=== PATIENT | male | born 1980 | race Caucasian/White ===

== ENCOUNTER 2016-07-16 22:34 | Emergency (ER) | payer MEDICAID, OTHER ==
--- NOTE | 2016-07-16 23:24 | ED ---
HPI Febrile Illness - HPI Summary HPI Summary: Patient presents for delayed evaluation of nasal congestion and cough for the last 2 days. Some sick contacts at his facility and told to come get checked out. Ford subjective fever yesterday. Cough is dry and non productive with frontal sinus congestion. Denies back or abd pain, chest pain. No allev factors attempted. Feels well otherwise. - History of Current Complaint Chief Complaint: EDFever Time Seen by Provider: 07/16/16 23:15 Onset/Duration: Started Days Ago Timing: Constant Initial Severity: Mild Current Severity: Mild Pain Intensity: 0 - Allergy/Home Medications Allergies/Adverse Reactions: Allergies Allergy/AdvReac Type Severity Reaction Status Date / Time No Known Allergies Allergy Verified 07/31/15 13:38 PMH/Surg Hx/FS Hx/Imm Hx Musculoskeletal History: Reports: Hx Arthritis, Other Musculoskeletal History - degenerative disk disorder Neurological History: Comment Only: Other Neuro Impairments/Disorders - dizziness and faiting spells when over heated Psychiatric History: Reports: Hx Anxiety, Hx Post Traumatic Stress Disorder, Hx of Violent Episodes Against Others, Other Psychiatric Issues/Disorders - Previous [facility] visit Denies: Hx Eating Disorder - Immunization History Date of Influenza Vaccine: No Infectious Disease History: No Infectious Disease History: Denies: Traveled Outside the [place] in Last 30 Days - Family History Known Family History: Positive: None Family History: R & n/C - Social History Alcohol Use: None Hx Substance Use: No Substance Use Type: Reports: None Hx Tobacco Use: Yes Smoking Status (MU): Heavy Every Day Tobacco Smoker Type: Cigarettes Review of Systems Positive: Fever. Negative: Chills Negative: Photophobia Positive: Sore Throat, Nasal Discharge. Negative: Ear Ache Cardiovascular: Negative Positive: Cough All Other Systems Reviewed And Are Negative: Yes Physical Exam Triage Information Reviewed: Yes Vital Signs On Initial Exam: Initial Vitals Temp Pulse Resp BP Pulse Ox 98.1 F 101 20 147/90 99 07/16/16 22:35 07/16/16 22:35 07/16/16 22:35 07/16/16 22:35 07/16/16 22:35 Vital Signs Reviewed: Yes Appearance: Positive: Well-Appearing, No Pain Distress, Well-Nourished Skin: Positive: Warm, Skin Color Reflects Adequate Perfusion, Dry Head/Face: Positive: Normal Head/Face Inspection Eyes: Positive: Normal, EOMI, MAGDALENA, Conjunctiva Clear ENT: Positive: Pharyngeal erythema, Nasal congestion, TMs normal. Negative: Nasal drainage, TM bulging, TM dull, TM red, Tonsillar swelling, Tonsillar exudate, Trismus, Muffled/hoarse voice Dental: Negative: Percussion Tenderness @ Neck: Positive: Supple, Nontender, No Lymphadenopathy Respiratory/Lung Sounds: Positive: Clear to Auscultation, Breath Sounds Present Cardiovascular: Positive: Normal, RRR, Pulses are Symmetrical in both Upper and Lower Extremities Abdomen Description: Positive: Nontender, No Organomegaly, Soft Musculoskeletal: Positive: Normal, Strength/ROM Intact Neurological: Positive: Normal, Sensory/Motor Intact, Alert, Oriented to Person Place, Time, CN Intact II-III, Reflexes Intact Diagnostics - Vital Signs Vital Signs Temp Pulse Resp BP Pulse Ox 07/16/16 22:35 98.1 F 101 20 147/90 99 - Laboratory Lab Statement: Any lab studies that have been ordered have been reviewed, and results considered in the medical decision making process. Course/Dx - Febrile Illness Differential Diagnoses: Other: - Primary concern for viral syndrome/URI vs influenza vs strep pharyngitis. Clear lung sounds and low concern for pneumonia. - Diagnoses Provider Diagnoses: Upper respiratory infection Discharge - Discharge Plan Condition: Stable Disposition: HOME Patient Education Materials: Upper Respiratory Infection (ED)
[2016-07-17 00:12] VITALS: BP 146/76
--- NOTE | 2016-07-17 07:45 | RAD ---
INDICATION: Cough. COMPARISON: There are no prior studies available for comparison. TECHNIQUE: Dual-energy PA and lateral views of the chest were obtained. FINDINGS: The heart is within normal limits in size. Mediastinal and hilar contours appear within normal limits. The lungs are clear. No pleural effusion is present. IMPRESSION: NO EVIDENCE FOR ACTIVE CARDIOPULMONARY DISEASE.
== END 2016-07-17 00:11 | disposition home or self-care (01) ==
LOC: ED 22:34
DX: J06.9 Acute upper respiratory infection, unspecified (principal); J02.9 Acute pharyngitis, unspecified; R05 Cough; F17.210 Nicotine dependence, cigarettes, uncomplicated
CPT/HCPCS: 71020; 87502; 87651; 99282

== ENCOUNTER 2018-01-02 20:15 | Emergency (ER) | payer OTHER ==
[2018-01-02 20:32] VITALS: BP 112/68
--- NOTE | 2018-01-02 20:59 | UC ---
Hand/Wrist HPI - HPI Summary HPI Summary: 1. 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 LEFT THUMB WAS PULLED BACK. HAS PAIN, SWELLING AND DECREASED ROM. 2. ALSO IS CONCERNED ABOUT HIS RIGHT GREAT TOE NAIL. THINKS IT IS INGROWN. - History Of Current Complaint Chief Complaint: UCUpperExtremity Stated Complaint: THUMB INJURY,TOE COMPLAINT Time Seen by Provider: 01/02/18 20:43 Hx Obtained From: Patient Onset/Duration: Sudden Onset, Lasting Hours, Still Present Severity Initially: Moderate Severity Currently: Moderate Pain Intensity: 9 Pain Scale Used: 0-10 Numeric Character Of Pain: Sharp Aggravating Factor(s): Movement Alleviating Factor(s): Rest, Ice Associated Signs And Symptoms: Positive: Swelling Related History: Dominant Hand Right - Allergies/Home Medications Allergies/Adverse Reactions: Allergies Allergy/AdvReac Type Severity Reaction Status Date / Time No Known Allergies Allergy Verified 01/02/18 20:32 Home Medications: Home Medications ARIPiprazole TAB* [Abilify 2 MG TAB*] 2 mg PO DAILY 01/02/18 [History Confirmed 01/02/18] Diclofenac Sodium EC TAB* [Voltaren EC TAB*] 25 mg PO BID PRN 01/02/18 [History Confirmed 01/02/18] Escitalopram Oxalate [Lexapro 10 mg] 10 mg PO DAILY 01/02/18 [History Confirmed 01/02/18] PMH/Surg Hx/FS Hx/Imm Hx Psychological History: Anxiety, Depression - Surgical History Surgical History: None - Family History Known Family History: Positive: Unknown - PT ADOPTED - Social History Alcohol Use: None Substance Use Type: None Smoking Status (MU): Heavy Every Day Tobacco Smoker Type: Cigarettes Amount Used/How Often: 1 PPD - Immunization History Most Recent Influenza Vaccination: has never had one Most Recent Tetanus Shot: less than 10 years ago Most Recent Pneumonia Vaccination: has never had it Review of Systems Constitutional: Negative Skin: Negative Respiratory: Negative Cardiovascular: Negative Gastrointestinal: Negative Motor: Decreased ROM All Other Systems Reviewed And Are Negative: Yes Physical Exam Triage Information Reviewed: Yes Appearance: Well-Appearing, No Pain Distress, Well-Nourished Vital Signs: Initial Vital Signs Temp 98.3 F 01/02/18 20:26 Pulse 83 01/02/18 20:26 Resp 16 01/02/18 20:26 BP 112/68 01/02/18 20:26 Pulse Ox 99 01/02/18 20:26 Vital Signs Reviewed: Yes Eyes: Positive: Conjunctiva Clear ENT: Positive: Hearing grossly normal Neck: Positive: Supple Respiratory: Positive: No respiratory distress, No accessory muscle use Cardiovascular: Positive: Pulses Normal Abdomen Description: Positive: Soft Musculoskeletal: Positive: ROM Limited @ - LEFT THUMB, Edema @ - LEFT THUMB, Other: - TTP LEFT 1ST MCP JOINT Neurological: Positive: Alert Psychological: Positive: Age Appropriate Behavior Skin: Positive: Other - RIGHT GREAT TOE NAIL INGROWN. Negative: rashes Hand/Wrist Course/Dx - Differential Dx/Diagnosis Provider Diagnoses: 1. LEFT THUMB SPRAIN. 2. RIGHT INGROWN TOE NAIL Discharge - Sign-Out/Discharge Documenting (check all that apply): Patient Departure - Discharge Plan Condition: Stable Disposition: HOME Patient Education Materials: Skier's Thumb (ED), Ingrown Nail (ED), Finger Sprain (ED) Forms: *Work Release Referrals: Eleanor Gagnon MD [Primary Care Provider] - If Needed Donovan Pickering MD [Medical Doctor] - If Needed Additional Instructions: XRAY UNREMARKABLE FOR FRACTURE OR DISLOCATION. LIKELY SPRAIN. YOUR SYMPTOMS SHOULD IMPROVE SIGNIFICANTLY OVER THE NEXT 1-2 WEEKS. IF YOU DO NOT IMPROVE EXPECTED FOLLOW-UP WITH YOUR PCP OR ORTHO. NSAIDS NEEDED FOR DISCOMFORT. REST , ICE, ELEVATE. WEAR THE SPLINT AT NIGHT AND DURING THE DAY ABLE. BE SURE NOT TO CUT YOUR TOE NAILS TOO SHORT. FOLLOW-UP WITH PODIATRY TO FURTHER DISCUSS TREATMENT OPTIONS FOR YOUR INGROWN NAIL. PODIATRY IN [facility] Dr. Rolo Horton [address] Dr[address] Shubham Easley. Please call his office at [phone] to make an appointment to be seen Dr. Edy Lemons. Please call his office at [phone] to make an appointment to be seen - Billing Disposition and Condition Condition: STABLE Disposition: Home
--- NOTE | 2018-01-02 21:09 | RAD ---
INDICATION: Left thumb injury COMPARISON: None TECHNIQUE: AP, lateral, and oblique views were obtained. FINDINGS: The bony structures, joint spaces, and soft tissues are normal for age. IMPRESSION: NO ACUTE FRACTURE
== END 2018-01-02 22:00 | disposition home or self-care (01) ==
LOC: UCEAST 20:15
DX: S63.602A Unspecified sprain of left thumb, initial encounter (principal); W19.XXXA Unspecified fall, initial encounter; Y93.89 Activity, other specified; Y92.9 Unspecified place or not applicable; L60.0 Ingrowing nail; F17.210 Nicotine dependence, cigarettes, uncomplicated; F41.8 Other specified anxiety disorders
CPT/HCPCS: 99213; G0463

== ENCOUNTER 2018-04-28 20:54 | Emergency (ER) | payer OTHER ==
[2018-04-28 21:06] VITALS: BP 112/78
--- NOTE | 2018-04-28 21:36 | UC ---
Hand/Wrist HPI - HPI Summary HPI Summary: 37 yo male with left little finger infection x days no fever now pain radiating up arm - History Of Current Complaint Chief Complaint: UCUpperExtremity Stated Complaint: FINGER PAIN Time Seen by Provider: 04/28/18 21:16 Hx Obtained From: Patient Onset/Duration: Gradual Onset, Lasting Days Severity Initially: Mild Severity Currently: Moderate Pain Intensity: 6 Pain Scale Used: 0-10 Numeric Character Of Pain: Sharp, Aching, Burning Aggravating Factor(s): Other - touch Alleviating Factor(s): Elevation Associated Signs And Symptoms: Positive: Swelling, Redness Related History: Dominant Hand Right - Allergies/Home Medications Allergies/Adverse Reactions: Allergies Allergy/AdvReac Type Severity Reaction Status Date / Time No Known Allergies Allergy Verified 04/28/18 21:06 PMH/Surg Hx/FS Hx/Imm Hx Previously Healthy: Yes Psychological History: Anxiety, Depression - Surgical History Surgical History: None - Family History Known Family History: Positive: Unknown - PT ADOPTED - Social History Alcohol Use: None Substance Use Type: Prescribed Smoking Status (MU): Heavy Every Day Tobacco Smoker Type: Cigarettes Amount Used/How Often: 1 PPD - Immunization History Most Recent Influenza Vaccination: has never had one Most Recent Tetanus Shot: unknown Most Recent Pneumonia Vaccination: has never had it Review of Systems All Other Systems Reviewed And Are Negative: Yes Constitutional: Positive: Negative Skin: Positive: Negative Eyes: Positive: Negative ENT: Positive: Negative Respiratory: Positive: Negative Cardiovascular: Positive: Negative Gastrointestinal: Positive: Negative Genitourinary: Positive: Negative Motor: Positive: Negative Neurovascular: Positive: Negative Musculoskeletal: Positive: Negative Neurological: Positive: Negative Psychological: Positive: Negative Physical Exam Triage Information Reviewed: Yes Appearance: Well-Appearing, No Pain Distress, Well-Nourished Vital Signs: Initial Vital Signs Temp 98.4 F 04/28/18 21:03 Pulse 91 04/28/18 21:03 Resp 18 04/28/18 21:03 BP 112/78 04/28/18 21:03 Pulse Ox 97 04/28/18 21:03 Vital Signs Reviewed: Yes Eyes: Positive: Conjunctiva Clear ENT: Positive: Hearing grossly normal. Negative: Nasal congestion, Nasal drainage, Trismus, Muffled voice, Dental tenderness Neck: Positive: Supple, Nontender, No Lymphadenopathy Respiratory: Positive: Lungs clear, Normal breath sounds, No respiratory distress, No accessory muscle use Cardiovascular: Positive: RRR, No Murmur Musculoskeletal: Positive: Other: - see image Neurological: Positive: Alert Psychological Exam: Normal Hand/Wrist Course/Dx - Differential Dx/Diagnosis Provider Diagnoses: paronychia left little finger Discharge - Sign-Out/Discharge Documenting (check all that apply): Patient Departure All imaging exams completed and their final reports reviewed: No Studies - Discharge Plan Condition: Stable Disposition: HOME Prescriptions: Cephalexin CAP* [Keflex CAP*] 500 mg PO QID #28 cap Patient Education Materials: Paronychia (ED) Referrals: Patsy Rojo MD [Primary Care Provider] - If Needed Additional Instructions: warm soapy soaks at least 4x day until improved recheck in about 48 hours if not improved elevate elevate elevate - Billing Disposition and Condition Condition: STABLE Disposition: Home Images Hands: 1 - red/swollen around nail margin
[2018-04-28] MEDS ORDERED: Cephalexin CAP* 500 MG PO ONE ×2 (21:38)
== END 2018-04-28 22:01 | disposition home or self-care (01) ==
LOC: UCEAST 20:54
DX: L03.012 Cellulitis of left finger (principal); F17.210 Nicotine dependence, cigarettes, uncomplicated
CPT/HCPCS: 10060; 87070; 87205; 87640; 87641; 99212; A9270-GY; G0463

== ENCOUNTER 2018-07-22 18:59 | Emergency (ER) | payer OTHER ==
[2018-07-22 19:38] VITALS: BP 152/117
--- NOTE | 2018-07-22 20:26 | UC ---
Upper Extremity HPI - HPI Summary HPI Summary: 37-year-old male comes in with a chief complaint of left elbow pain. Been having pain for about a month. The pain is on the lateral aspect of the elbow is worse with pronation and supination and also some extension movements of the elbow. Pain sometimes radiates up into the left shoulder. 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 Occasionally he'll get some numbness in the arm that goes away. No complaint of any chest pain. - History of Current Complaint Chief Complaint: UCUpperExtremity Stated Complaint: ELBOW AND ARM PAIN Time Seen by Provider: 07/22/18 20:14 Pain Intensity: 7 - Allergies/Home Medications Allergies/Adverse Reactions: Allergies Allergy/AdvReac Type Severity Reaction Status Date / Time No Known Allergies Allergy Verified 07/22/18 19:38 PMH/Surg Hx/FS Hx/Imm Hx Previously Healthy: Yes - Surgical History Surgical History: None - Family History Known Family History: Positive: None, Unknown - PT ADOPTED - Social History Alcohol Use: None Substance Use Type: None Smoking Status (MU): Heavy Every Day Tobacco Smoker Type: Cigarettes Amount Used/How Often: 1 PPD - Immunization History Most Recent Influenza Vaccination: has never had one Most Recent Tetanus Shot: unknown Most Recent Pneumonia Vaccination: has never had it Review of Systems All Other Systems Reviewed And Are Negative: Yes Constitutional: Positive: Negative Skin: Positive: Negative Eyes: Positive: Negative ENT: Positive: Negative Respiratory: Positive: Negative Cardiovascular: Positive: Negative Gastrointestinal: Positive: Negative Motor: Positive: Negative Neurovascular: Positive: Negative Musculoskeletal: Positive: Other: - see hpi Neurological: Positive: Negative Psychological: Positive: Negative Is Patient Immunocompromised?: No Physical Exam Triage Information Reviewed: Yes Appearance: Well-Appearing, No Pain Distress, Well-Nourished Vital Signs: Initial Vital Signs Temp 99.1 F 07/22/18 19:33 Pulse 90 07/22/18 19:33 Resp 18 07/22/18 19:33 BP 152/117 07/22/18 19:33 Pulse Ox 97 07/22/18 19:33 Vital Signs Reviewed: Yes Eye Exam: Normal Eyes: Positive: Conjunctiva Clear Neck exam: Normal Neck: Positive: Supple Respiratory: Positive: No respiratory distress Musculoskeletal: Positive: Other: - Left elbow is tender to palpation left elbow is tender to palpation just medial to the radial head. Elbow has full range of motion and full strength although some ranges of motion do increase the pain. No erythema no color. Fingers wrists and shoulders have full range of motion full-strength no sensation deficits is normal radial pulses normal capillary refill. Neurological Exam: Normal Neurological: Positive: Alert, Muscle Tone Normal Psychological Exam: Normal Psychological: Positive: Age Appropriate Behavior Skin Exam: Normal Upper Extremity Course/Dx - Course Course Of Treatment: I discussed the x-rays with the patient. I do not see any fractures radiologist reading is pending. By exam it appears that he has lateral epicondylitis. I doubt and gave him the patient information handout from up-to-date for epicondylitis. Recommended him getting a brace icing it and continue his Voltaren. Follow-up his primary care physician if not improving. - Differential Dx/Diagnosis Provider Diagnosis: Epicondylitis, lateral, left Discharge - Sign-Out/Discharge Documenting (check all that apply): Patient Departure All imaging exams completed and their final reports reviewed: No - Discharge Plan Condition: Stable Disposition: HOME Patient Education Materials: Tennis Elbow (ED) Referrals: Eleanor Gagnon MD [Primary Care Provider] - Additional Instructions: FOLLOW UP WITH YOUR DOCTOR IF NOT COMPLETELY IMPROVED. GET RECHECKED FOR ANY WORSENING OF YOUR CONDITION OR QUESTIONS OR CONCERNS. - Billing Disposition and Condition Condition: STABLE Disposition: Home
--- NOTE | 2018-07-23 14:15 | UC ---
- Progress Note Progress Note: OFFICIAL RADIOLOGY REPORT REVIEWED. NEGATIVE EXAM. NO CHANGE IN MGMT. Course/Dx - Diagnoses Provider Diagnoses: Epicondylitis, lateral, left Discharge - Sign-Out/Discharge Documenting (check all that apply): Post-Discharge Follow Up All imaging exams completed and their final reports reviewed: Yes - Discharge Plan Condition: Stable Disposition: HOME Patient Education Materials: Tennis Elbow (ED) Referrals: Eleanor Gagnon MD [Primary Care Provider] - Additional Instructions: FOLLOW UP WITH YOUR DOCTOR IF NOT COMPLETELY IMPROVED. GET RECHECKED FOR ANY WORSENING OF YOUR CONDITION OR QUESTIONS OR CONCERNS. - Billing Disposition and Condition Condition: STABLE Disposition: Home
== END 2018-07-22 21:15 | disposition home or self-care (01) ==
LOC: UCEAST 18:59
DX: M77.12 Lateral epicondylitis, left elbow (principal); F17.210 Nicotine dependence, cigarettes, uncomplicated
CPT/HCPCS: 99211; G0463

== ENCOUNTER 2019-01-04 10:23 | Day surgery (SDC) | payer OTHER ==
[~2019-01-04 10:23] MED LIST: Lactated Ringers 1000 ML Bag* 1,000 ML IV SCH
[2019-01-04] MEDS ORDERED: ceFAZolin 2 GM in NS PREMIX(*) 2 GM/100 ML BAG IVPB ONE (10:45)
[2019-01-04] MEDS ORDERED: Buffered Lidocaine 1% SYRIN* 1 ML/SYRINGE INTRADERM ONE (10:45)
[2019-01-04] MEDS ORDERED: ceFAZolin 1 GM ADVAN(*) 1 GM ADDV.VIAL IVPB ONE (10:45)
[2019-01-04] MEDS: Buffered Lidocaine 1% SYRIN* 1 ML/SYRINGE INTRADERM ONE ×2 (10:52→11:04)
[2019-01-04] MEDS ORDERED: Midazolam* 1 MG/ML 5 ML VIAL (5 MG) ONE (11:32)
[2019-01-04] MEDS ORDERED: fentaNYL* 50 MCG/ML 2 ML VIAL (100 MCG VIAL) ONE ×2 (11:32→13:26)
[2019-01-04] MEDS ORDERED: Lidocaine 1% w EPI 1:100,000* 30 ML VIAL ONE (11:58)
[2019-01-04] MEDS ORDERED: Mineral Oil Sterile, TOPICAL* 25 ML BTL ONE (12:00)
[2019-01-04] MEDS ORDERED: Artificial Tear OPHTH.OINT* 3.5 GM ONE (12:01)
[2019-01-04] MEDS ORDERED: Propofol* 10 MG/ML 20 ML BTL ONE (12:21)
[2019-01-04] MEDS ORDERED: BSS OPTH.SOL* BTL ONE (12:23)
[2019-01-04] MEDS ORDERED: Naloxone* 0.4 MG/ML 1 ML VIAL IV PRN (12:45)
[2019-01-04] MEDS ORDERED: Acetaminophen TAB* 325 MG ONE (14:28)
[2019-01-04 14:36] VITALS: BP 131/79
== END 2019-01-04 14:45 | disposition home or self-care (01) ==
LOC: OR 10:23
PROVIDERS: ATTEND Plastic Surgery
DX: C44.319 Basal cell carcinoma of skin of other parts of face (principal); K21.9 Gastro-esophageal reflux disease without esophagitis; F41.8 Other specified anxiety disorders; E66.9 Obesity, unspecified; F17.210 Nicotine dependence, cigarettes, uncomplicated
CPT/HCPCS: 88305; 88331; 88332; A9270-GY; J0690; J2250; J2704; J3010

== ENCOUNTER 2019-01-20 13:22 | Emergency (ER) | payer OTHER ==
--- NOTE | 2019-01-20 14:28 | ED ---
Syncope/Near Syncope - HPI Summary HPI Summary: 38 yr old male with the complaint of syncope times two today. He states that he had sutures removed from his right side of the face near his nose. He states the sutures were there due to removal of skin cancer. He states it was difficult and painful to have the sutures removed today. He says he got hot and sweaty and felt light headed on his way to his car after leaving the plastic surgeons office. He passed out twice in the car. The patient states he had some SOB prior to passing out. He has had some low back pain as well. The patient has felt nauseated since passing out. He denies chest pain. He has passed out in the past during surgical proceedures, dentist. - History Of Current Complaint Chief Complaint: UCGeneralIllness Time Seen by Provider: 01/20/19 13:52 - Allergies/Home Medications Allergies/Adverse Reactions: Allergies Allergy/AdvReac Type Severity Reaction Status Date / Time No Known Allergies Allergy Verified 01/20/19 13:32 PMH/Surg Hx/FS Hx/Imm Hx Endocrine/Hematology History: Denies: Hx Anticoagulant Therapy, Hx Diabetes, Hx Thyroid Disease Cardiovascular History: Denies: Hx Hypertension, Hx Myocardial Infarction Respiratory History: Denies: Hx Asthma, Hx Chronic Obstructive Pulmonary Disease (COPD) GI History: Reports: Hx Gastroesophageal Reflux Disease - CONTROL WITH MEDICATION, Hx Hiatal Hernia - POSSIBLE Denies: Hx Ulcer Musculoskeletal History: Reports: Hx Arthritis - SPINE, Other Musculoskeletal History - degenerative disk disorder Sensory History: Denies: Hx Contacts or Glasses, Hx Hearing Aid Opthamlomology History: Denies: Hx Contacts or Glasses Neurological History: Reports: Hx Nerve Disease Comment Only: Other Neuro Impairments/Disorders - dizziness and faiting spells when over heated Psychiatric History: Reports: Hx Anxiety - AROUNDS CROWDS, Hx Depression - MAJOR DEPRESSIVE DISORDER, Hx Post Traumatic Stress Disorder, Hx of Violent Episodes Against Others, Other Psychiatric Issues/Disorders - Previous [facility] visit Denies: Hx Eating Disorder - Cancer History Cancer Type, Location and Year: skin CA on face 2018 - Surgical History Surgery Procedure, Year, and Place: skin CA removed from face 01/2019 Hx Anesthesia Reactions: No - Immunization History Date of Influenza Vaccine: No Infectious Disease History: No Infectious Disease History: Denies: Hx Hepatitis, Hx Human Immunodeficiency Virus (HIV), Traveled Outside the [place] in Last 30 Days - Family History Known Family History: Positive: None, Unknown - PT ADOPTED - Social History Alcohol Use: None Hx Substance Use: No Substance Use Type: Reports: None Hx Tobacco Use: Yes Smoking Status (MU): Heavy Every Day Tobacco Smoker Type: Cigarettes Amount Used/How Often: 1 PPD Have You Smoked in the Last Year: Yes Review of Systems Constitutional: Negative Positive: Other - syncope All Other Systems Reviewed And Are Negative: Yes Physical Exam Triage Information Reviewed: Yes Vital Signs On Initial Exam: Initial Vitals Temp Pulse Resp BP Pulse Ox 0 F 78 18 111/73 97 01/20/19 13:25 01/20/19 13:25 01/20/19 13:25 01/20/19 13:25 01/20/19 13:25 Vital Signs Reviewed: Yes Appearance: Positive: Well-Appearing, No Pain Distress Skin: Positive: Warm, Skin Color Reflects Adequate Perfusion Head/Face: Positive: Normal Head/Face Inspection Eyes: Positive: EOMI, MAGDALENA ENT: Positive: Normal ENT inspection Neck: Positive: Nontender Respiratory/Lung Sounds: Positive: Clear to Auscultation, Breath Sounds Present Cardiovascular: Positive: RRR. Negative: Murmur Abdomen Description: Negative: Distended Musculoskeletal: Positive: Strength/ROM Intact Neurological: Positive: Sensory/Motor Intact, Alert, Oriented to Person Place, Time, CN Intact II-III, Normal Gait, Speech Normal Psychiatric: Positive: Normal Diagnostics - Vital Signs Vital Signs Temp Pulse Resp BP Pulse Ox 01/20/19 13:56 74 18 111/77 95 01/20/19 13:25 0 F 78 18 111/73 97 - Laboratory Lab Statement: Any lab studies that have been ordered have been reviewed, and results considered in the medical decision making process. - EKG 01/20/19 Cardiac Rate: NL EKG Rhythm: Sinus Rhythm ST Segment: Non-Specific - j point elevation II,III, V2,3 Ectopy: None Course/Dx Course Of Treatment: 38 yr old with syncope, likely vasovagal. He refuses transfer to ER for labs and further work up and observation. He is signing out AMA. - Diagnoses Provider Diagnoses: Syncope Discharge - Sign-Out/Discharge Documenting (check all that apply): Patient Departure All imaging exams completed and their final reports reviewed: No Studies - Discharge Plan Condition: Good Disposition: AGAINST MEDICAL ADVICE Patient Education Materials: Syncope (ED) Referrals: Eleanor Gagnon MD [Primary Care Provider] - 1 Day - Billing Disposition and Condition Condition: GOOD Disposition: Against Medical Advice
[2019-01-20 14:50] VITALS: BP 127/80
== END 2019-01-20 14:46 | disposition left against medical advice (07) ==
LOC: UCEAST 13:22
DX: R55 Syncope and collapse (principal); F17.210 Nicotine dependence, cigarettes, uncomplicated
CPT/HCPCS: 93005; 99212; G0463

== ENCOUNTER 2019-04-02 16:03 | Emergency (ER) | payer OTHER ==
[2019-04-02 16:14] VITALS: BP 150/88
[2019-04-02] MEDS ORDERED: Ondansetron INJ* 2 MG/ML VIAL IV ONE (16:26)
[2019-04-02] MEDS ORDERED: NS 0.9% 1000 ML** 1,000 ML BOLUS ONE (16:26)
--- NOTE | 2019-04-02 16:32 | UC ---
Abdominal Pain Male HPI - HPI Summary HPI Summary: The patient is a 38-year-old male that developed a fairly acute onset of periumbilical abdominal pain late last night. He has had nausea and vomiting x 3 and 6-8 episodes of diarrhea. He states he has passed some bright red blood on a few occasions. He has had some episodes of tenesmus. He has felt feverish and had chills. He has had no trouble urinating. He denies any back pain. He has not had any surgeries on his abdomen. - History of Current Complaint Chief Complaint: UCAbdominalPain Stated Complaint: STOMACHE PAIN Time Seen by Provider: 04/02/19 16:15 Hx Obtained From: Patient Onset/Duration: Sudden Onset, Lasting Hours Timing: Constant Severity Initially: Moderate Severity Currently: Severe Pain Intensity: 8 - pain waxes and wanes Pain Scale Used: 0-10 Numeric Location: Other - periumbilica is Radiates: No Character: Cramping Aggravating Factor(s): Movement Associated Signs And Symptoms: Positive: Fever, Blood in Stool, Decreased Appetite, Nausea, Vomiting, Diarrhea. Negative: Cough, Chest Pain, Dizzy, Back Pain, Constipation - Alert, Urinary Symptoms - Allergies/Home Medications Allergies/Adverse Reactions: Allergies Allergy/AdvReac Type Severity Reaction Status Date / Time No Known Allergies Allergy Verified 01/20/19 13:32 PMH/Surg Hx/FS Hx/Imm Hx Previously Healthy: Yes Other History Of: Negative For: Anticoagulant Therapy - Surgical History Surgical History: Yes Surgery Procedure, Year, and Place: skin CA removed from face 01/2019 - Family History Known Family History: Positive: Unknown - PT ADOPTED - Social History Alcohol Use: None Substance Use Type: None Smoking Status (MU): Heavy Every Day Tobacco Smoker Type: Cigarettes Amount Used/How Often: 1 PPD Have You Smoked in the Last Year: Yes - Immunization History Most Recent Influenza Vaccination: has never had one Most Recent Tetanus Shot: unknown Most Recent Pneumonia Vaccination: has never had it Review of Systems All Other Systems Reviewed And Are Negative: Yes Constitutional: Positive: Fever - noel, Chills Skin: Positive: Negative Eyes: Positive: Negative ENT: Positive: Negative Respiratory: Positive: Negative Cardiovascular: Positive: Negative Gastrointestinal: Positive: Abdominal Pain, Vomiting, Diarrhea, Nausea Genitourinary: Positive: Negative Motor: Positive: Negative Neurovascular: Positive: Negative Musculoskeletal: Positive: Negative Neurological: Positive: Negative Psychological: Positive: Negative Physical Exam Triage Information Reviewed: Yes Appearance: Well-Appearing, Well-Nourished, Pain Distress Vital Signs: Initial Vital Signs Temp 98.2 F 04/02/19 16:10 Pulse 81 04/02/19 16:10 Resp 18 04/02/19 16:10 BP 150/88 04/02/19 16:10 Pulse Ox 95 04/02/19 16:10 Eyes: Positive: Conjunctiva Clear ENT: Positive: Hearing grossly normal, Uvula midline. Negative: Nasal congestion, Nasal drainage, Tonsillar swelling, Tonsillar exudate, Hoarse voice Dental Exam: Other - edentulous Neck: Positive: Supple, Nontender, No Lymphadenopathy Respiratory: Positive: Lungs clear, Normal breath sounds, No respiratory distress, No accessory muscle use Cardiovascular: Positive: RRR, No Murmur Abdomen Description: Positive: Other: - Tender periumbilically and LLQ. Negative: Nontender, CVA Tenderness (R), CVA Tenderness (L) Musculoskeletal: Positive: No Edema Neurological: Positive: Alert Psychological Exam: Normal Skin Exam: Normal Abd Pain Male Course/Dx - Course Course Of Treatment: I spoke to [facility] [place] [facility] attending To ER via EMS - Differential Dx/Clinical Impression Provider Diagnosis: Abdominal pain, acute, periumbilical Discharge ED - Sign-Out/Discharge Documenting (check all that apply): Patient Departure All imaging exams completed and their final reports reviewed: No Studies - Discharge Plan Condition: Stable Disposition: TRANS HIGHER LVL OF CARE FAC Referrals: Eleanor Gagnon MD [Primary Care Provider] - - Billing Disposition and Condition Condition: STABLE Disposition: Trans Higher Lvl of Care Fac
== END 2019-04-02 17:01 | disposition short-term general hospital (02) ==
LOC: UCEAST 16:03
DX: R10.33 Periumbilical pain (principal); F17.210 Nicotine dependence, cigarettes, uncomplicated; R19.7 Diarrhea, unspecified; R11.2 Nausea with vomiting, unspecified
CPT/HCPCS: 96360; 96374; 99203; G0463; J2405

== ENCOUNTER 2019-04-02 17:17 | Emergency (ER) | payer OTHER ==
[2019-04-02 18:29] LABS: ABS Eosinophils 0.4 10^3/ul (0-0.6); ABS Lymphocytes 2.2 10^3/ul (1.0-4.8); ABS Monocytes 0.7 10^3/ul (0-0.8); ABS Neutrophils 7.1 10^3/ul (1.5-7.7); Eosinophil % 3.7 %; Hematocrit 48 % (42-52); Hemoglobin 16.6 g/dL (14.0-18.0); Lymphocyte % 21.2 %; Mean Corpuscular HGB Conc 35 g/dL (31-36); Mean Corpuscular Hemoglobin 32 pg (27-31); Mean Corpuscular Volume 92 fL (80-94); Mean Platelet Volume 8.8 fL (7.4-10.4); Nucleated Red Blood Cells % 0.2; Platelet Count 162 10^3/uL (150-450); Red Blood Count 5.22 10^6 /uL (4.18-5.48); Red Cell Distribution Width 14 % (10-15); White Blood Count 10.5 10^3/uL (3.5-10.8)
[2019-04-02 18:40] LABS: Albumin 4.5 g/dL (3.2-5.2); Albumin/Globulin Ratio 1.7 (1-3); BUN/Creatinine Ratio 9.3 (8-20); C Reactive Protein 1.62 mg/L (<8.01); Calcium 9.2 mg/dL (8.6-10.3); EGFR African American 91.6 (>60); EGFR Non-African American 75.7 (>60); Globulin 2.6 g/dL (2-4); Potassium 4.3 mmol/L (3.5-5.0); Total Bilirubin 0.5 mg/dL (0.2-1.0); Total Protein 7.1 g/dL (6.4-8.9)
--- NOTE | 2019-04-02 18:49 | ED ---
Abdominal Pain/Male - HPI Summary HPI Summary: Patient complains of central abdominal pain, nausea, watery stools starting this morning. Abdominal pain described as constant, worse with movement. Patient went to urgent care for further evaluation and was sent to the ED to rule out SBO. Zofran given in urgent care. Patient denies fever, cough, sore throat, CP, SOB, vomiting, change in urine, penile or testicular symptoms. Medical history is none. Abdominal surgical history is none. Denies foreign travel, recent antibiotics, contact exposure. - History of Current Complaint Chief Complaint: EDAbdPain Stated Complaint: "ABDOMINAL PAIN COMING FROM [facility] PER EMS" Time Seen by Provider: 04/02/19 17:38 Hx Obtained From: Patient Onset/Duration: Sudden Onset, Lasting Hours Timing: Constant Severity Initially: Severe Severity Currently: Severe Pain Intensity: 8 Pain Scale Used: 0-10 Numeric Location: Umbilical Radiates: No Character: Sharp, Dull Aggravating Factor(s): Nothing Alleviating Factor(s): Nothing Associated Signs And Symptoms: Positive: Nausea, Diarrhea - Allergies/Home Medications Allergies/Adverse Reactions: Allergies Allergy/AdvReac Type Severity Reaction Status Date / Time No Known Allergies Allergy Verified 04/02/19 17:32 PMH/Surg Hx/FS Hx/Imm Hx Endocrine/Hematology History: Denies: Hx Anticoagulant Therapy, Hx Diabetes, Hx Thyroid Disease Cardiovascular History: Denies: Hx Hypertension, Hx Myocardial Infarction Respiratory History: Denies: Hx Asthma, Hx Chronic Obstructive Pulmonary Disease (COPD) GI History: Reports: Hx Gastroesophageal Reflux Disease - CONTROL WITH MEDICATION, Hx Hiatal Hernia - POSSIBLE Denies: Hx Ulcer Musculoskeletal History: Reports: Hx Arthritis - SPINE, Other Musculoskeletal History - degenerative disk disorder Sensory History: Denies: Hx Contacts or Glasses, Hx Hearing Aid Opthamlomology History: Denies: Hx Contacts or Glasses Neurological History: Reports: Hx Nerve Disease Comment Only: Other Neuro Impairments/Disorders - dizziness and faiting spells when over heated Psychiatric History: Reports: Hx Anxiety - AROUNDS CROWDS, Hx Depression - MAJOR DEPRESSIVE DISORDER, Hx Post Traumatic Stress Disorder, Hx of Violent Episodes Against Others, Other Psychiatric Issues/Disorders - Previous [facility] visit Denies: Hx Eating Disorder - Cancer History Cancer Type, Location and Year: skin CA on face 2018 - Surgical History Surgery Procedure, Year, and Place: skin CA removed from face 01/2019 Hx Anesthesia Reactions: No - Immunization History Date of Influenza Vaccine: No Infectious Disease History: No Infectious Disease History: Denies: Hx Hepatitis, Hx Human Immunodeficiency Virus (HIV), Traveled Outside the [place] in Last 30 Days - Family History Known Family History: Positive: Unknown - PT ADOPTED - Social History Alcohol Use: None Hx Substance Use: No Substance Use Type: Reports: None Hx Tobacco Use: Yes Smoking Status (MU): Heavy Every Day Tobacco Smoker Type: Cigarettes Amount Used/How Often: 1 PPD Have You Smoked in the Last Year: Yes Review of Systems Constitutional: Negative Eyes: Negative ENT: Negative Cardiovascular: Negative Respiratory: Negative Positive: Abdominal Pain, Diarrhea, Nausea Genitourinary: Negative Musculoskeletal: Negative Skin: Negative Neurological: Negative Psychological: Normal All Other Systems Reviewed And Are Negative: Yes Physical Exam Triage Information Reviewed: Yes Vital Signs On Initial Exam: Initial Vitals Temp Pulse Resp BP Pulse Ox 97.9 F 74 16 154/91 95 04/02/19 17:26 04/02/19 17:26 04/02/19 17:26 04/02/19 17:26 04/02/19 17:26 Vital Signs Reviewed: Yes Appearance: Positive: Well-Appearing Skin: Positive: Warm Head/Face: Positive: Normal Head/Face Inspection Eyes: Positive: Normal Neck: Positive: Supple Respiratory/Lung Sounds: Positive: Clear to Auscultation Cardiovascular: Positive: Normal Abdomen Description: Positive: Other: - Tender to palpation centrally and left lower quadrant. Musculoskeletal: Positive: Normal Neurological: Positive: Normal Psychiatric: Positive: Normal AVPU Assessment: Alert - Bear Coma Scale Best Eye Response: 4 - Spontaneous Best Motor Response: 6 - Obeys Commands Best Verbal Response: 5 - Oriented Coma Scale Total: 15 Procedures - Sedation Patient Received Moderate/Deep Sedation with Procedure: No Diagnostics - Vital Signs Vital Signs Temp Pulse Resp BP Pulse Ox 04/02/19 17:28 73 154/91 95 04/02/19 17:27 71 95 04/02/19 17:26 97.9 F 74 16 154/91 95 - Laboratory Lab Results: Lab Results 04/02/19 04/02/19 04/02/19 Range/Units 18:09 18:09 18:09 WBC 10.5 (3.5-10.8) 10^3/uL RBC 5.22 (4.18-5.48) 10^6 /uL Hgb 16.6 (14.0-18.0) g/dL Hct 48 (42-52) % MCV 92 (80-94) fL MCH 32 H (27-31) pg MCHC 35 (31-36) g/dL RDW 14 (10-15) % Plt Count 162 (150-450) 10^3/uL MPV 8.8 (7.4-10.4) fL Neut % (Auto) 67.6 % Lymph % (Auto) 21.2 % [place] % (Auto) 7.0 % Eos % (Auto) 3.7 % Baso % (Auto) 0.5 % Absolute Neuts (auto) 7.1 (1.5-7.7) 10^3/ul Absolute Lymphs (auto) 2.2 (1.0-4.8) 10^3/ul Absolute Monos (auto) 0.7 (0-0.8) 10^3/ul Absolute Eos (auto) 0.4 (0-0.6) 10^3/ul Absolute Basos (auto) 0.0 (0-0.2) 10^3/ul Absolute Nucleated RBC 0.0 10^3/ul Nucleated RBC % 0.2 Sodium 137 (135-145) mmol/L Potassium 4.3 (3.5-5.0) mmol/L Chloride 108 (101-111) mmol/L Carbon Dioxide 23 (22-32) mmol/L Anion Gap 6 (2-11) mmol/L BUN 10 (6-24) mg/dL Creatinine 1.08 (0.67-1.17) mg/dL Est GFR ( Amer) 91.6 (>60) Est GFR (Non-Af Amer) 75.7 (>60) BUN/Creatinine Ratio 9.3 (8-20) Glucose 96 (70-100) mg/dL Lactic Acid 0.8 (0.5-2.0) mmol/L Calcium 9.2 (8.6-10.3) mg/dL Total Bilirubin 0.50 (0.2-1.0) mg/dL AST 30 (13-39) U/L ALT 50 (7-52) U/L Alkaline Phosphatase 58 (34-104) U/L C-Reactive Protein 1.62 (<8.01) mg/L Total Protein 7.1 (6.4-8.9) g/dL Albumin 4.5 (3.2-5.2) g/dL Globulin 2.6 (2-4) g/dL Albumin/Globulin Ratio 1.7 (1-3) Lipase 43 (11.0-82.0) U/L Result Diagrams: 04/02/19 18:09 04/02/19 18:09 Lab Statement: Any lab studies that have been ordered have been reviewed, and results considered in the medical decision making process. Abdominal Pain Male Course/Dx - Course Course Of Treatment: Patient complains of central abdominal pain, nausea, watery stools starting this morning. Abdominal pain described as constant, worse with movement. Patient went to urgent care for further evaluation and was sent to the ED to rule out SBO. Zofran given in urgent care. Patient denies fever, cough, sore throat, CP, SOB, vomiting, change in urine, penile or testicular symptoms. Medical history is none. Abdominal surgical history is none. Denies foreign travel, recent antibiotics, contact exposure. Vital signs within normal limits. Labs unremarkable. CT abdomen and pelvis negative. - Diagnoses Provider Diagnoses: Abdominal pain, Diarrhea Discharge ED - Sign-Out/Discharge Documenting (check all that apply): Patient Departure - Discharge Plan Condition: Stable Disposition: HOME Prescriptions: Dicyclomine CAP* [Bentyl CAP*] 20 mg PO TID PRN 10 Days #60 cap PRN Reason: Pain Patient Education Materials: Acute Diarrhea (ED), Abdominal Pain (ED) Referrals: Eleanor Gagnon MD [Primary Care Provider] - Additional Instructions: Drink plenty fluids to maintain hydration. You may take [id number] Imodium to control diarrhea. Return to the ED for any new or worsening symptoms. - Billing Disposition and Condition Condition: STABLE Disposition: Home - Attestation Statements Provider Attestation: I was available for consultation for this patient. I did not evaluate the patient or participate in any medical decision making or disposition decisions unless I am specifically named in the chart as having consulted on the patient. If I have consulted on the patient, please see my own ED note on the patient encounter. Zeina Weems MD
[2019-04-02] MEDS ORDERED: Iohexol 300* (CONTRAST) 10 ML SDV IV ONE (19:12)
[2019-04-02 19:37] LABS: Urine Appearance Clear; Urine Bilirubin Negative (Negative); Urine Blood Negative (Negative); Urine Color Yellow; Urine Glucose Negative (Negative); Urine Ketones Negative (Negative); Urine Nitrite Negative (Negative); Urine Protein Negative (Negative); Urine Urobilinogen Negative (Negative)
[2019-04-02] MEDS ORDERED: Dicyclomine CAP* 10 MG PO ONE (21:52)
[2019-04-02 22:16] VITALS: BP 154/74
== END 2019-04-02 22:16 | disposition home or self-care (01) ==
LOC: ED 17:17
DX: R10.9 Unspecified abdominal pain (principal); R19.7 Diarrhea, unspecified; K21.9 Gastro-esophageal reflux disease without esophagitis; F41.9 Anxiety disorder, unspecified; F43.10 Post-traumatic stress disorder, unspecified; F32.9 Major depressive disorder, single episode, unspecified; Z85.828 Personal history of other malignant neoplasm of skin; F17.210 Nicotine dependence, cigarettes, uncomplicated; Z79.899 Other long term (current) drug therapy
CPT/HCPCS: 36415; 74177; 80053; 81003; 83605; 83690; 85025; 86140; 99283; A9270-GY; Q9967

== ENCOUNTER 2019-05-22 21:27 | Emergency (ER) | payer OTHER ==
--- OUTSIDE RECORDS SUMMARY | 2019-05-22 21:32 | XMS REPORT | Summary of Care ---
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 avoiding triggers are essential keys to my success Finding ways to distract myself when I have the urge to smoke such as taking a walk, reading, playing a board game, putting together a puzzle, etc. Taking medications as my healthcare provider has advised to help alleviate the urge to smoke. If I am unable to take the medication, I will discuss further with my healthcare provider. Recognize reasons for relapse in my past attempts. What did and did not work for me Consider connecting with group, individual, or telephone counseling Keep a regular sleep schedule Lifestyle No Digna Guerrero FNP Note: This is an individualized lifestyle goal for Tyler Huffman: Please maintain a regular sleep schedule. This may help with some symptoms of depression. Take all prescribed medications as Self-management No Digna Guerrero FNP directed Note: This is an individualized self-management goal for Tyler Huffman: Please take all prescribed medications as directed. 1. Do not skip doses. If you cannot afford your medications, talk with your doctor. 2. Use a pill reminder system such as a pill box if needed. Your pharmacist can help you with this. 3. Contact your Pharmacy 5 days before your medication runs out. If you cannot take your medications for any reasons, talk with your doctor. 4. Please bring all of your medication bottles and inhalers (or a list of all your medications/inhalers) with you to every visit. Potential barriers to meeting all of your care plan goals will continue to be addressed on an ongoing basis. documented as of this encounter Results Not on filedocumented in this encounter Visit Diagnoses Diagnosis Depression, unspecified depression type - Primary Diarrhea, unspecified type Smoking Tobacco use disorder Anxiety Anxiety state, unspecified PTSD (post-traumatic stress disorder) Posttraumatic stress disorder Sleep disorder Sleep disturbance, unspecified Need for influenza vaccination Need for prophylactic vaccination and inoculation against influenza Atypical chest pain Other chest pain documented in this encounter Insurance Payer Benefit Plan / Subscriber ID Effective Dates Phone Address Type Group [facility] xxxxxxxxxxx 2016-Present [facility] documented as of this encounter
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
[2019-05-22 21:43] VITALS: BP 134/95
[2019-05-22] MEDS ORDERED: Lidocaine 1% w EPI 1:100,000* MDV 20 ML VIAL INJ ONE (21:57)
[2019-05-22] MEDS ORDERED: Lidocaine 1% w EPI 1:100,000* MDV 20 ML VIAL ONE (22:02)
[2019-05-22] MEDS ORDERED: Cephalexin CAP* 500 MG PO ONE (22:37)
[2019-05-22] MEDS ORDERED: DOXYcycline CAP(*) 100 MG PO ONE (22:38)
--- NOTE | 2019-05-22 22:43 | UC ---
Skin Complaint HPI - HPI Summary HPI Summary: 38 yo male with right groin pain x 3 days no fever no hx MRSA no n/v/d no cp or sob painful to touch or when clothes rub - History of Current Complaint Chief Complaint: UCSkin Time Seen by Provider: 05/22/19 21:35 Stated Complaint: PERSONAL Hx Obtained From: Patient Onset/Duration: Gradual Onset, Lasting Days Timing: Constant Onset Severity: Mild Current Severity: Moderate Pain Intensity: 7 Pain Scale Used: 0-10 Numeric Location: Discrete Character: Swelling, Pain, Redness, Raised Aggravating Factor(s): Touch Alleviating Factor(s): Nothing Associated Signs & Symptoms: Positive: Tenderness - Allergy/Home Medications Allergies/Adverse Reactions: Allergies Allergy/AdvReac Type Severity Reaction Status Date / Time No Known Allergies Allergy Verified 04/02/19 17:32 Home Medications: Home Medications lisinopriL [Lisinopril 2.5 MG-] 05/22/19 [History] PMH/Surg Hx/FS Hx/Imm Hx Previously Healthy: Yes Cardiovascular History: Hypertension Other History Of: Negative For: Anticoagulant Therapy - Surgical History Surgical History: Yes Surgery Procedure, Year, and Place: skin CA removed from face 01/2019 - Family History Known Family History: Positive: Unknown - PT ADOPTED - Social History Alcohol Use: None Substance Use Type: None Smoking Status (MU): Heavy Every Day Tobacco Smoker Type: Cigarettes Amount Used/How Often: 1 PPD Have You Smoked in the Last Year: Yes Household Exposure Type: Cigarettes - Immunization History Most Recent Influenza Vaccination: has never had one Most Recent Tetanus Shot: unknown Most Recent Pneumonia Vaccination: has never had it Review of Systems All Other Systems Reviewed And Are Negative: Yes Constitutional: Positive: Negative Skin: Positive: Negative Eyes: Positive: Negative ENT: Positive: Negative Respiratory: Positive: Negative Cardiovascular: Positive: Negative Gastrointestinal: Positive: Negative Genitourinary: Positive: Negative Motor: Positive: Negative Neurovascular: Positive: Negative Musculoskeletal: Positive: Negative Neurological: Positive: Negative Psychological: Positive: Negative Physical Exam Triage Information Reviewed: Yes Appearance: Well-Appearing, No Pain Distress, Well-Nourished Vital Signs: Initial Vital Signs Temp 99.6 F 05/22/19 21:34 Pulse 103 05/22/19 21:34 Resp 16 05/22/19 21:34 BP 134/95 05/22/19 21:34 Pulse Ox 96 05/22/19 21:34 Vital Signs Reviewed: Yes Eyes: Positive: Conjunctiva Clear ENT: Positive: Hearing grossly normal, Uvula midline. Negative: Nasal congestion, Nasal drainage, Tonsillar swelling, Tonsillar exudate, Sinus tenderness Neck: Positive: Supple, Nontender, No Lymphadenopathy Respiratory: Positive: Lungs clear, Normal breath sounds, No respiratory distress, No accessory muscle use Cardiovascular: Positive: RRR, No Murmur Musculoskeletal: Positive: ROM Intact, No Edema Neurological: Positive: Alert Psychological Exam: Normal Skin Exam: Other - see image Images Front/Back of Body, Lg ([place]): 1 - 1 x 1 cm abscess 2 - overlying cellulitis Procedures - Incision and Drainage Right Groin Anesthesia: Lidocaine Instrument(s): Scalpel Packing: Other - none Course/Dx - Course Course Of Treatment: incision of right groin abscess patient tolerated procedure well - Diagnoses Provider Diagnosis: Abscess of right groin, Cellulitis of right groin Discharge ED - Sign-Out/Discharge Documenting (check all that apply): Patient Departure All imaging exams completed and their final reports reviewed: No Studies - Discharge Plan Condition: Stable Disposition: HOME Prescriptions: Cephalexin CAP* [Keflex CAP*] 500 mg PO QID #28 cap DOXYcycline CAP(*) [DOXYcycline 100MG CAP(*)] 100 mg PO BID #14 cap Patient Education Materials: Cellulitis (ED), Abscess (ED) Referrals: Eleanor Gagnon MD [Primary Care Provider] - 2 Days Additional Instructions: to ER for new or worsening symptoms a culture is pending we may be able to have you just take one antiobiotic when we get the results frequent warm compresses - Billing Disposition and Condition Condition: STABLE Disposition: Home
== END 2019-05-22 22:53 | disposition home or self-care (01) ==
LOC: UCEAST 21:27
DX: L02.214 Cutaneous abscess of groin (principal); L03.314 Cellulitis of groin; I10 Essential (primary) hypertension; F17.210 Nicotine dependence, cigarettes, uncomplicated; Z79.899 Other long term (current) drug therapy
CPT/HCPCS: 10060; 87070; 87205; 87640; 87641; 99212; A9270-GY; G0463